=== PATIENT | female | born 1980 | race Caucasian/White ===

== ENCOUNTER 2018-04-19 22:07 | Emergency (ER) | payer SELFPAY ==
[2018-04-19] MEDS ORDERED: Lidocaine 1% w/Epinephrine 1:100K 20 ML VIAL ONE (22:32)
[2018-04-19] MEDS ORDERED: Lorazepam 2 MG/ML VIAL ONE (22:47)
[2018-04-19] MEDS ORDERED: Fentanyl 100 MCG/2 ML VIAL ONE (22:47)
[2018-04-19] MEDS ORDERED: Ondansetron HCl/PF 4 MG/2 ML Vial ONE (22:47)
[2018-04-19] MEDS ORDERED: Ondansetron ODT 4 MG TAB ONE (22:48)
--- NOTE | 2018-04-19 23:31 | CT ---
CT BRAIN: 04/19/2018 PROVIDED CLINICAL HISTORY: Head pain, status post injury. COMPARISON: 12/04/2013 FINDINGS: The ventricular system appears normal in size and morphology. There is no evidence for intracranial hemorrhage or mass effect. There is prominent left periorbital soft tissue swelling with evidence fo r a fracture involving the left lateral orbital wall. IMPRESSION: 1. No evidence for intracranial hemorrhage. 2. Left lateral orbital wall fracture with associated periorbital hematoma. There is medial displac ement of fracture fragments that approximate the superolateral aspect of the left globe. There is a somewhat asymmetric appearance to the left lacrimal gland, which may reflect associated injury. POS: SHARAN
[2018-04-19] MEDS ORDERED: cefTRIAXone\\ROCEPHIN 1 GM VIAL ONE (23:34)
[2018-04-19] MEDS ORDERED: Adacel (T-DAP) 0.5 ML VIAL ONE (23:34)
--- NOTE | 2018-04-19 23:35 | CT ---
CT FACIAL BONES: 04/19/2018 PROVIDED CLINICAL HISTORY: Pain, status post injury. FINDINGS: There is a comminuted and displaced fracture of the superior aspect of the left lateral orbital wall. There is displacement of several fracture fragments medially, and these approximate the superolater al margin of the left globe. There is probable intraorbital hematoma within the superolateral aspect of the orbit, anteriorly. The globes themselves appear normal. No additional fracture is evident. 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 The paranasal sinuses appear clear. There is prominent periorbital soft tissue swelling on the left. IMPRESSION: Left lateral orbital wall fracture, as described above. POS: JOO
[2018-04-20] MEDS ORDERED: cloNIDine 0.1 MG TAB ONE (00:46)
== END 2018-04-20 02:25 | disposition home or self-care (01) ==
LOC: MADERS 22:07
DX: S02.32XA Fracture of orbital floor, left side, initial encounter for closed fracture (principal); S01.81XA Laceration without foreign body of other part of head, initial encounter; I10 Essential (primary) hypertension; F17.210 Nicotine dependence, cigarettes, uncomplicated; W17.89XA Other fall from one level to another, initial encounter
CPT/HCPCS: 12011; 70450; 70486; 90471; 90715; 96374; 96375; J0696; J2001; J2060; J2405; J3010; Q0162

== ENCOUNTER 2018-04-25 14:16 | Emergency (ER) | payer SELFPAY | END 2018-04-25 14:44 | disposition home or self-care (01) | LOC: MADERS 14:16 | DX: S01.112D Laceration without foreign body of left eyelid and periocular area, subsequent encounter (principal); I10 Essential (primary) hypertension; F17.210 Nicotine dependence, cigarettes, uncomplicated; X58.XXXD Exposure to other specified factors, subsequent encounter | CPT/HCPCS: 99282 ==